=== PATIENT | male | born 2000 | race Caucasian/White ===

== ENCOUNTER 2021-07-10 13:40 | Emergency (ER) | payer OTHER ==
[~2021-07-10] VITALS: Ht 177.8 cm; Wt 99.8 kg
[~2021-07-10 13:40] MED LIST: LAMOTRIGINE150 MG PO; QUETIAPINE FUM100 MG PO; SEROQUEL 50 MG50 MG PO; WELLBUTRIN XL300 MG PO
[2021-07-10 13:42] VITALS: BP 118/62
[2021-07-10] MEDS ORDERED: ARTHRITIS PAIN100 GM TOP ×2 (14:43→15:04)
[2021-07-10] MEDS ORDERED: NAPROSYN500 MG PO ×2 (14:43→15:04)
== END 2021-07-10 15:00 | disposition home or self-care (01) ==
LOC: ER 13:40
DX: M25.561 Pain in right knee (principal); Z98.890 Other specified postprocedural states; Z79.899 Other long term (current) drug therapy; Z91.030 Bee allergy status